=== PATIENT | male | born 1995 | race Two or more races ===

== ENCOUNTER 2022-12-14 23:58 | Emergency (ER) | payer SELFPAY ==
[2022-12-15] VITALS: BP 150/84; PULSE 95; RESP 18; TEMP 36.7; O2SAT 97; BMI 29.0
--- NOTE | 2022-12-15 00:15 | HMH.EDGENADL ---
Discharge Plan Clinical Impressions Clinical Impression: Medical clearance for incarceration Discharge ED Provider: Trinh Krause Adult HPI General Stated complaint: Medical Clearance Time Seen by Provider: 12/15/22 00:08 History of Present Illness HPI narrative: This patient is a 27-year-old male who denies significant past medical history presenting to the emergency department for evaluation for medical clearance for incarceration. After interactive discussion with police, it was noted the patient was reportedly arrested for trespassing. Patient denies any concerns or complaints at this time. He states that he is feeling good. He denies any history of medical problems. Related Data Allergies Allergy/AdvReac Type Severity Reaction Status Date / Time No Known Allergies Allergy Verified 12/15/22 00:15 [facility] Disclaimer: The information contained in this section may have been updated after the patient was seen, as this information can be updated by other users. Social History Smoking Status: Never smoker alcohol intake: never current occupational status: employed Travel in the last 8 weeks: None ROS Obtained: Yes All systems reviewed & no additional complaints except as documented Physical Exam General General appearance: alert and in no apparent distress Head Head exam: atraumatic and normocephalic Eye Eye exam: Present normal appearance, PERRL and EOMI ENT ENT exam: Present normal exam, normal oropharynx, mucous membranes moist and normal external ear exam Neck Neck exam: Present normal inspection, full ROM and trachea midline; Absent tenderness Chest Chest inspection: Present normal inspection and symmetric chest wall rise; Absent tenderness Respiratory Respiratory exam: Present normal lung sounds bilaterally; Absent respiratory distress, wheezes, stridor or accessory muscle use Cardiovascular Cardiovascular exam: Present regular rate and normal rhythm Abdominal Exam Abdominal exam: Present soft; Absent distention, tenderness or guarding Extremities Exam Extremities exam: Present normal inspection, full ROM and normal capillary refill; Absent tenderness or edema Back Exam Back exam: Present normal inspection and full ROM; Absent tenderness Neurological Exam Neurological exam: Present alert, oriented X3, CN II-XII intact and normal gait; Absent motor sensory deficit Psychiatric Psychiatric exam: Present normal affect and normal mood Skin Skin exam: Present warm and dry Medical Decision Making Medical Records Medical records reviewed: Yes I reviewed the patient's medical records. [place] Inquiry Pt receiving controlled substance: No Lab Data Lab results reviewed: Yes I reviewed the patient's lab results. Medical Decision Narrative: In summary, this patient is a 27-year-old male presenting to the Emergency Department for evaluation of evaluation for clearance for incarceration. On assessment, the patient is well-appearing with no concerns or complaints at this time. Vitals are reassuring on cardiac telemetry. Exam is reassuring. Given this, I feel that he is deemed to medically cleared for incarceration. They are given strict return precautions and he was discharged to custody of police in stable condition. Critical Care Critical Care Time Critical Care Time: No
[2022-12-15 00:21] VITALS: BP 150/84; PULSE 75; RESP 16; TEMP 36.8; O2SAT 98
== END 2022-12-15 00:21 ==
LOC: ER 12-15 00:40
PROVIDERS: Emergency Provider Emergency Medicine
DX: Z00.8 Encounter for other general examination (principal)
CPT/HCPCS: 99281